=== PATIENT | female | born 1975 | race Caucasian/White ===

== ENCOUNTER 2025-02-16 10:49 | Outpatient (AMB) | payer BC, SELFPAY ==
--- NOTE | 2025-02-16 10:52 | A.OFFPC_ITS ---
Vital Signs 02/16/25 11:03 Height 5 ft 2 in Weight 137 lb 6 oz BMI 25.1 BP 124/70 Blood Pressure Location Lt brachial Position Sitting Respiration 16 Pulse 106 H Pulse Source Pulse Oximeter Temp 98.2 F Temp Source Oral Pulse Oximetry (%) 99 Oxygen Delivery Method Room Air Intake Visit Reasons: [facility] EST CARE Intake Note: patient here for new patient visit Sock Liner Required: No Is last menstrual period known: Yes Last menstrual period: 02/02/25 Post menopausal: No Patient : No Allergies Penicillins Allergy (Intermediate, Verified 02/16/25 11:52) Rash Medication List - Last Reconciled 02/16/25 by Rachel Fine CNP calcium carbonate (Calcium 600) 600 mg PO DAILY cholecalciferol (vitamin D3) 25 mcg PO DAILY bz-mbw-DH-B2-dc9-bln-epa-fish 80 mcg-12.5 mcg -23.5 mg (Centrum Multi Plus Denair-3) tabs PO DAILY spironolactone 50 mg PO DAILY Tobacco use date assessed: 02/16/25 Dental Screening Dental Screen Date: 02/16/25 Did you have a dental visit in the last 12 months?: Yes Did you have a dental problem in the last 6 months where you did not have access to dental care?: No Was dental information given to patient?: Patient has dentist HPI HPI Comments History of Present Illness Details 49-year-old female presents to [facility]. She admits to taking her medications as prescribed without adverse reactions. She is on spironolactone for acne. Prior PCP? - [facility] Last office visit/CPE/labs - About 15 months ago Acute issue(s) - None Past Medical History - Hyperlipidemia, hypermobility syndrome , acne Surgical History - Cholecystectomy, bilateral breast redu ction, section, arthroscopy of left shoulder, microdiskectomy Family History - Dad: Alcohol abuse, substance abuse Social History - Nonsmoker. Does not vape. Drinks 4-5 b eers or 2 glasses of wine occasionally/2-4 times monthly. Denies recreational drug use - Has been making healthy dietary choice s. Exercises routinely. Generally sleep well Health maintenance - Last eye exam was in 08/[address] Jessenia mao. Advise to rign a release for her PCP to obtain ophthalmology record - Last dental visit was 7 months ago - Last Tdap was in 10/2023 with former P CP. Record not currently available - She is up-to-date on the influenza vac cine this season - Last pap smear test was in 04/2024 with [facility] business office technician: Negative. Record not currently available - Last mammogram was in 09/2024 with [facility] business office technician: Normal. Record not currently available Specialists - [facility] business office technician - [facility] Medical History (Updated 02/16/25 @ 11:56 by Rachel Fine CNP) Acne Hypermobility syndrome High cholesterol Surgical History (Updated 02/16/25 @ 11:08 by HILDA Porter) History of microdiscectomy History of arthroscopy of left shoulder Hx laparoscopic cholecystectomy History of bilateral breast reduction surgery H/O: Family History (Updated 02/16/25 @ 11:02 by HILDA Porter) Father Alcohol abuse FH: mental illness Substance abuse Brother FH: mental illness Substance abuse Social History (Updated 02/16/25 @ 11:02 by HILDA Porter) Housing: House Patient Tobacco Use Status: Never used Tobacco e-Cigarette/Vaping Use: Never Used Second Hand Smoke Exposure: No service: No Current occupational status: employed 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 1. Little interest or pleasure in doing things: not at all 2. Feeling down, depressed, or hopeless: not at all 3. Trouble falling or staying asleep, or sleeping too much: not at all 4. Feeling tired or having little energy: not at all 5. Poor appetite or overeating: not at all 6. Feeling bad about yourself - or that you are a failure or have let yourself or your family down: not at all 7. Trouble concentrating on things, such as reading the newspaper or watching television: not at all 8. Moving or speaking so slowly that other people could have noticed. Or the opposite - being so fidgety or restless that you have been moving around a lot more than usual: not at all 9. Thoughts that you would be better off or of hurting yourself in some way: not at all Total score: 0 Depression Screening Interpretation: Negative Depression Screening Done: Yes 71172 - PHQ-9 Billing: Yes Source: Developed by Drs. Malik Zhu, Kristi Espinoza, Gabriel Alvarez and colleagues, with an educational lucrecia from [employer].. Thrive Questionnaire Date Thrive assessed: 02/16/25 I am a: Patient What is your living situation today?: I have a steady place to live Within the past 12 months, did the food you bought not last and you didn't have the money to get more?: Never true Within the past 12 months, did you worry whether your food would run out before you got money to buy more?: Never true Do you have trouble paying for medicines?: No Do you have trouble getting transportation to medical appointments?: No Do you have trouble paying your heating and electricity bill?: No Do you have trouble taking care of your child, family member or friend?: No Do you have trouble with day-to-day activities such as bathing, preparing meals, shopping, managing finances, etc.?: No Are you currently unemployed and looking for a job?: No Are you interested in more education?: No Please select the resources that you would like help with: None Currently or been in a relationship where the following occur: No concerns reported THRIVE Score: 0 AUDIT C Alcohol Use Questionnaire (AUDIT-C) 1. How often do you have a drink containing alcohol?: 2-4 times a month 2. How many drinks containing alcohol do you have on a typical day when you are drinking?: 3 or 4 3. How often do you have six or more drinks on one occasion?: Less than monthly Total Score: 4 Score Reviewed/Action Taken: Yes ZACK-7 AMB Questionnaire ZACK-7 Date ZACK - 7 assessed: 02/16/25 Feeling nervous, anxious, or on edge: 0 = Not at all Not being able to stop or control worryin = Not at all Worrying too much about different things: 0 = Not at all Trouble relaxin = Not at all Being so restless that it is hard to sit still: 0 = Not at all Becoming easily annoyed or irritable: 0 = Not at all Feeling afraid as if something awful might happen: 0 = Not at all Total ZACK-7 score (0-4 normal; 5-9 mild; 10-14 moderate; 15-21 severe): 0 Source: Developed by Drs. Malik Zhu, Kristi Espinoza, Gabriel Alvarez and colleagues, with an educational lucrecia from [employer].. ZACK-7 Assessment Billing ZACK-7 Assessment Tool: ZACK-7 Assessment 25774 Review of Systems Const Details: Denies chills, Denies fatigue, Denies fever(s), Denies headache(s) and Denies weakness HEENT Denies change in vision, Denies dizziness, Denies headache(s), Denies hearing loss, Denies nasal congestion, Denies sinus pain, Denies sinus pressure and Denies sore throat Card Denies chest pain, Denies lightheadedness, Denies dyspnea and Denies other (palpitations) Resp Denies cough, Denies dyspnea and Denies wheezing GI Denies abdominal pain, Denies melena, Denies hematochezia, Denies change in bowel habits, Denies dyspepsia and Denies nausea Denies hematuria and Denies dysuria Musc Denies abnormal gait, Denies myalgias, Denies arthralgias, Denies numbness and Denies tingling Skin/Breast Denies rash, Denies unusual bruising and Denies wounds Neuro Denies abnormal gait, Denies dizziness, Denies headache(s), Denies memory loss, Denies numbness, Denies Sensory deficit (Neuro), Denies tingling and Denies weakness Psych Denies anxiety, Denies depression and Denies memory loss Endo Denies cold intolerance, Denies fatigue, Denies heat intolerance, Denies polydipsia and Denies polyuria Anuel/Lymph Denies easy bleeding and Denies easy bruising Aller/Immun Denies wheezing Physical exam (Primary Care) Vital Signs: Last Vital Signs Temp 98.2 F 02/16/25 11:03 Pulse 106 H 02/16/25 11:03 Resp 16 02/16/25 11:03 BP 124/70 02/16/25 11:03 Pulse Ox 99 02/16/25 11:03 Oxygen Delivery Method Room Air 02/16/25 11:03 BMI result Body Mass Index 25.1 Tobacco/Smoking Status: Tobacco use Status Tobacco use date assessed 02/16/25 02/16/25 11:02 Patient Tobacco Use Status Never used Tobacco 02/16/25 11:02 e-Cigarette/Vaping Use Never Used 02/16/25 11:02 PHQ-9: PHQ-9 Score PHQ-9: Total score 0 02/16/25 11:11 Depression Screening Interpretation: Negative Thrive Assessment: Date of Thrive Assessment Date Thrive assessed 02/16/25 02/16/25 11:11 Currently or been in a relationship where the following occur: No concerns reported Const Other: General: no acute distress, well developed, alert and awake Nutritional Appearance: well nourished Orientation/consciousness: patient oriented x3 HENMT Head: Yes normocephalic and Yes atraumatic Ears: hearing grossly normal bilaterally and TM's normal bilaterally General nose exam: Normal external nose present and Normal nares present Mouth: Normal oral and palatal mucosa present and moist mucous membranes Teeth and gingiva: dentition normal Throat: Yes oropharynx normal Eyes Pupils: Equal, round and reactive pupils present and Pupil accommodation reflex normal EOM: EOMs intact bilaterally Neck Neck: Yes normal visual inspection, Yes no lymphadenopathy and Yes trachea midline Thyroid: Thyroid normal Carotids: no bruits Lymphatic: no lymphadenopathy noted Chest Chest palpation & inspection: normal inspection of the chest Resp Effort & Inspection: normal respiratory effort Auscultation: clear to auscultation bilaterally Cardio Rate: regular rate Rhythm: regular rhythm Heart sounds: S1 normal heart sound present, S2 normal heart sound present, no gallops, no murmurs and no rubs Bruits: no abdominal aortic bruits and no carotid bruits GI Palpation (GI): No Abdominal aortic bruit present, Soft to palpation, nontender, No hepatosplenomegaly present and No Rebound tenderness present Auscultation: normal bowel sounds General: Yes no CVA tenderness Back/Spine/Pelvis Back: no CVA tenderness Cervical Spine: cervical ROM normal and No Cervical spine tenderness Thoracic/Lumbar Spine: thoraco-lumbar ROM normal, No pain with thoraco-lumbar ROM, No thoracic spinal tenderness and No lumbar spinal tenderness Skin General: warm and dry. Normal skin color. Normal skin turgor Lesions: no lesions Rashes: no rashes Trauma: no lacerations or abrasions Wounds: no wounds Nails: normal Neuro General: patient oriented x3, gait normal and CN's II-XI intact bilaterally Cranial nerves: Yes Equal, round and reactive pupils present Cognition (Neuro): normal cognition Gait exam (Neuro): Normal gait present Motor exam (neuro): 5/5 motor strength present throughout Sensory Exam: No Sensory deficit (Neuro) Deep tendon reflexes (DTR's): Right patellar reflex intensity grade: 2+ and Left patellar reflex intensity grade: 2+ Extrem General: Yes normal to inspection, No edema and No calf tenderness Psych Appearance: grossly normal Affect: normal affect Attitude: cooperative Thought process: Normal thought process present Coding Level of Care Code New Pt Prev Care 40-64y(09532) Diagnoses Normal physical examination, routine Z00.00 Laboratory tests ordered as part of a complete physical exam (CPE) Z00.00 Additional Codes ZACK-7 Assessment Billing - ZACK-7 Assessment Tool: ZACK-7 Assessment 87325 ([id number]) PHQ-9 - 33742 - PHQ-9 Billing: Yes ([id number]) Assessment & Plan Assessment & Plan (1) Normal physical examination, routine: Code(s): Z00.00 - Encounter for general adult medical examination without abnormal findings Category: Medical Plan: No significant functional limitation noted. Continue current treatment regimen. Perform lab work and follow-up for a telehealth visit for labs review in 2-3 weeks. Return sooner with symptoms or concerns. Verbalized understanding and agreed with the plan. (2) Laboratory tests ordered as part of a complete physical exam (CPE): Code(s): Z00.00 - Encounter for general adult medical examination without abnormal findings Category: Medical Plan: Fasting labs ordered as part of a complete physical exam. Advised to fast for at least 10 hours before getting labs drawn. May drink water Verbalized understanding and agreed with treatment plan. Orders: Orders Complete Blood Count Auto Diff Today Z00.00 - Encounter for general adult medical examination without abnormal findings TSH reflex Free T4 Today Z00.00 - Encounter for general adult medical examination without abnormal findings Vitamin D 25-OH Total Today Z00.00 - Encounter for general adult medical examination without abnormal findings Comprehensive [place]. Panel Fast Today Z00.00 - Encounter for general adult medical examination without abnormal findings Lipid Panel Today Z00.00 - Encounter for general adult medical examination without abnormal findings Microalbumin, Random (w Creat) Today Z00.00 - Encounter for general adult medical examination without abnormal findings UA CC w/rflx Micro + Cult Today Z00.00 - Encounter for general adult medical examination without abnormal findings
[2025-02-16 11:03] VITALS: BP 124/70; PULSE 106; RESP 16; TEMP 36.8; O2SAT 99; BMI 25.1
--- OUTSIDE RECORDS SUMMARY | 2025-02-16 13:26 | XMS_ITS | Clinical Summary ---
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; COMMENT: L4-L5;discectomy OTHER SURGICAL HISTORY PROCEDURE: IMPLANT BREAST SILICONE/EQ; COMMENT: 2009 BREAST REDUCTION PROCEDURE: [place] BREAST REDUCTION; COMMENT: and augmentation 2009 SHOULDER SURGERY Left PROCEDURE: HISTORICAL SHOULDER SURGERY BREAST ENHANCEMENT SURGERY W IMPLANT Medical History Medical History Date Comments Circumscribed scleroderma DX:Cir cumscribed scleroderma History of COVID-19 DX:History o f COVID-19 Family History Medical History Relation Name Comments CABG Father Hyperlipidemia Father Hypertension Father Other cancer Maternal Grandmother No Known Problems Mother Breast cancer Neg Hx Colon cancer Neg Hx Ovarian cancer Neg Hx Uterine cancer Neg Hx Relation Name Status Comments Brother 1 Alive Brother 2 Brother 3 Alive Brother 4 Alive Brother 5 (Age 2009) Father Maternal Grandfather Maternal Grandmother Mother Alive Paternal Grandfather Paternal Grandmother Sister Alive Social History Tobacco Use Types Packs/Day Years Used Date Smoking Tobacco: Never Smokeless Tobacco: Never Alcohol Use Standard Drinks/Week Comments Yes 0 (1 standard drink = 0.6 oz pur e alcohol) Comments No Sex and Gender Information Value Date Recorded Sex Assigned at Not on file Legal Sex Female 4:14 AM EST Gender Identity Not on file Sexual Orientation Not on file Obstetrics History Para Term AB IAB SAB Ectopic Multiple Livin g Live Births 2 2 2 2 Date Outcome GA Total Labor Labor/2nd/3rd Weight Sex Type Anes PTL Annita A1 A5 Name Clin Term Term Last Filed Vital Signs Vital Sign Reading Time Taken Comments Blood Pressure 97/65 11/22/2023 9:50 AM EDT Pulse 87 11/22/2023 9:50 AM EDT Temperature - - Respiratory Rate - - Oxygen Saturation - - Inhaled Oxygen Concentration - - Weight 61.7 kg (136 lb) 11/22/2023 9:50 AM EDT Height 157.5 cm (5' 2 ) 11/22/2023 9:50 AM EDT Body Mass Index 24.87 11/22/2023 9:50 AM EDT Plan of Treatment Health Maintenance Due Date Last Done Comments Colorectal Cancer Screening: Colonoscopy 1975 Hepatitis B Vaccines (1 of 3 - 19+ 3-dose series) 12/30/1994 Cervical Cancer Screening: HPV 12/30/1996 Cholesterol Screening (Lipid Panel) 04/01/2022 HIV Screening 04/01/2022 Hepatitis C Screening 04/01/2022 Social Influencers of Health Screening 04/01/2022 Depression Screening 04/23/2024 Hypertension/CHF/CAD Annual BMP Blood Test 10/20/2024 COVID-19 Vaccine ( - 2024- season) 2024 02/14/2021, 06/16/2020, 05/17/2020 Influenza Vaccine (#1) 2024 , 02/06/2023, 02/06/2022, Additional history exists Breast Cancer Screening 10/20/2026 10/21/19, 10/11/2023, 09/29/2022, Additional history exists DTaP,Tdap,and Td Vaccines (2 - Td or Tdap) 11/12/2033 11/13/2023 RSV Immunization Adult Patients (1 - 1-dose 75+ series) 12/30/2050 HIB Vaccines Aged Out No longer eligi ble based on patient's age to complete this topic HPV Vaccines Aged Out No longer eligi ble based on patient's age to complete this topic Hepatitis A Vaccines Aged Out No long er eligible based on patient's age to complete this topic IPV Vaccines Aged Out No longer eligi ble based on patient's age to complete this topic MMR Vaccines Aged Out No longer eligi ble based on patient's age to complete this topic Meningococcal ACWY Vaccine Aged Out N o longer eligible based on patient's age to complete this topic Meningococcal B Vaccine Aged Out No l onger eligible based on patient's age to complete this topic Pneumococcal Vaccine: Pediatrics (0 to 5 Years) and At-Risk Patients (6 to 49 Years) Aged Out No longer eligible based on patient's age to complete this topic RSV Immunization Patients Under 20 months Aged Out No longer eligible based on patient's age to complete this topic Varicella Vaccines Aged Out No longer eligible based on patient's age to complete this topic Procedures Procedure Name Priority Date/Time Associated Diagnosis Comments MG MAMMO DIGITAL SCREENING W JERZY BILAT Routine 10/20/2024 8:21 AM EDT Encounter for screening mammogram for breast cancer from Last 3 Months or Most Recently Relevant to Health Maintenance Results * MG Mammo Digital Screening w Jerzy bilat (10/20/2024 8:21 AM EDT) Anatomical Region Laterality Modality Breast Bilateral Mammography 10/20/2024 8:38 AM EDT Impressions 10/20/2024 8:42 AM EDT No mammographic evidence for malignancy. BI-RADS CATEGORY: 1 - NEGATIVE RECOMMENDATION: Screening bilateral mammogram is recommended in 1 year. Mammo Location: [facility], [address] [place] [address], [id number], . -------- FINAL REPORT -------- Dictated By: Diana Horta Dictated Date: 10/20/2024 08:38 ET Assigned Physician: Diana Horta Reviewed and Electronically Signed By: Diana Hrota Signed Date: 10/20/2024 08:42 ET Workstation ID: [id number] Transcribed By: Self Edit Transcribed Date: 10/20/2024 08:38 ET Narrative 10/20/2024 8:42 AM EDT Bilateral screening mammogram. CLINICAL: 48 years old, Female, routine annual exam. COMPARISON: Prior studies, latest from 10/11/2023. TECHNIQUE: Bilateral MLO and CC views were obtained digitally without and with implants displacement with 2-D C views and 3-D mammogram (digital breast tomosynthesis). Computer-aided detection was utilized in evaluation of this exam (CAD). FINDINGS: There is no evidence of suspicious mass or architectural distortion. No worrisome calcifications are evident. There has been no significant change from prior exam(s). BREAST DENSITY: C - The breasts are heterogeneously dense which may obscure small masses. Procedure Note Diana Horta MD - 10/20/2024 Bilateral screening mammogram. CLINICAL: 48 years old, Female, routine annual exam. COMPARISON: Prior studies, latest from 10/11/2023. TECHNIQUE: Bilateral MLO and CC views were obtained digitally without andwith implants displacement with 2-D C views and 3-D mammogram (digitalbreast tomosynthesis). Computer-aided detection was utilized in evaluationof this exam (CAD). FINDINGS: There is no evidence of suspicious mass or architectural distortion. Noworrisome calcifications are evident. There has been no significantchange from prior exam(s). BREAST DENSITY: C - The breasts are heterogeneously dense which mayobscure small masses. IMPRESSION: No mammographic evidence for malignancy. BI-RADS CATEGORY: 1 - NEGATIVE RECOMMENDATION: Screening bilateral mammogram is recommended in 1 year. Mammo Location: [facility], [address] [place] [address], [id number], . -------- FINAL REPORT -------- Dictated By: Diana Horta Dictated Date: 10/20/2024 08:38 ET Assigned Physician: Diana Horta Reviewed and Electronically Signed By: Diana Horta Signed Date: 10/20/2024 08:42 ET Workstation ID: [id number] Transcribed By: Self Edit Transcribed Date: 10/20/2024 08:38 ET Cami Espinal CNM IMG BI PROCEDURES Final Resul t from Last 3 Months or Most Recently Relevant to Health Maintenance Insurance [facility] Care Teams Optical Instrument Assembler Relationship Specialty Start Date End Date Ronnie Boswell MD [address] [place] [address] PCP - General 04/11/06
== END 2025-02-16 12:13 | disposition home or self-care (01) ==
LOC: HO.HMCFM 10:49
PROVIDERS: PCP Nurse Practitioner Family; Visit Provider Nurse Practitioner Family
DX: Z00.00 Encounter for general adult medical examination without abnormal findings (principal)

== ENCOUNTER → 2025-02-16 10:49 | Outpatient (BNVA) | payer BC, SELFPAY | PROVIDERS: PCP Nurse Practitioner Family; Visit Provider Nurse Practitioner Family | DX: Z00.00 Encounter for general adult medical examination without abnormal findings (principal) | CPT/HCPCS: 96127 ==

== ENCOUNTER 2025-02-24 07:32 | Outpatient (REF) | payer BC, SELFPAY ==
--- OUTSIDE RECORDS SUMMARY | 2025-02-24 07:35 | XMS_ITS | Clinical Summary ---
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 Mammo Location: [facility], [address] [place] [address], [id number], . -------- FINAL REPORT -------- Dictated By: Diana Horta Dictated Date: 10/20/2024 08:38 ET Assigned Physician: Diana Horta Reviewed and Electronically Signed By: Diana Horta Signed Date: 10/20/2024 08:42 ET Workstation ID: [id number] Transcribed By: Self Edit Transcribed Date: 10/20/2024 [...] is recommended in 1 year. Mammo Location: [facility], [address] [place] [address], [id number], . -------- FINAL REPORT -------- Dictated By: Diana Horta Dictated Date: 10/20/2024 08:38 ET Assigned Physician: Diana Horta Reviewed and Electronically Signed By: Diana Horta Signed Date: 10/20/2024 08:42 ET Workstation ID: [id number] Transcribed By: Self Edit Transcribed Date: 10/20/2024 08:38 ET Cami Espinal CNM IMG BI PROCEDURES Final Resul t from Last 3 Months or Most Recently Relevant to Health Maintenance Insurance [facility] Care Teams Lyft Driver Relationship Specialty Start Date End Date Ronnie Boswell MD [address] [place] [address] PCP - General 04/11/06
--- OUTSIDE RECORDS SUMMARY | 2025-02-24 07:35 | XMS_ITS | Clinical Summary ---
Author Organization [facility] Address [address] [id number] Phone Care Team Providers Care Bullet Assembly Press Setter Operator Name Role Phone Unknown, Unknown Primary Care Provider Kole shelby Immunizations Immunization Administration Dates Next Due COVID-19 (Pre-02/12) Moderna Vaccine, mRNA, PF 02/14/2021,06/16/2020,05/17/2020 INFLUENZA, SPLIT VIRUS, TRIVALENT PF 01/14/2024 Influenza Quadrivalent Preservative Free IM 01/21 Influenza Quadrivalent w/ Preservative IM 2020 Influenza, Unspecified Formulation 02/06/2023 Social History Tobacco Use Types Packs/Day Years Used Date Smoking Tobacco: Never Assessed Education Answer Date Recorded Are you interested in more education? Not on brianna e 08/18/2022 Are you concerned about learning? Not on file 08/18/2022 No 08/18/2022 No 08/18/2022 Digital Access Answer Date Recorded No 09/18/2022 No 09/18/2022 No 09/18/2022 Reliable internet access at home? Not on file 09/18/2022 Device with a working camera? Not on file Comments Unknown Sex and Gender Information Value Date Recorded Sex Assigned at Not on file Legal Sex Female 10:13 AM EDT Gender Identity Not on file Sexual Orientation Not on file Plan of Treatment Health Maintenance Due Date Last Done Comments Adult Td,Tdap Booster 1975 LIPID PANEL 1975 DEPRESSION SCREENING 1987 SMOKING Hx and SMOKELESS TOBACCO SCREENING 12/30/1988 HEPATITIS C SCREENING 12/30/1993 HIV ONE-TIME SCREENING (18-65 YEARS) 12/30/1993 PAP SMEAR 12/30/1996 MAMMOGRAM 2015 COLOGUARD 12/30/2020 COLONOSCOPY 12/30/2020 COLORECTAL CANCER SCREENING 12/30/2020 FIT TEST 12/30/2020 FOBT 12/30/2020 SIGMOIDOSCOPY 12/30/2020 VIRTUAL COLONOSCOPY 12/30/2020 INFLUENZA VACCINE (#1) 2024 , 02/06/2023, 02/06/2022, Additional history exists COVID-19 VACCINE ( season) 2024 02/14/2021, 06/16/2020, 05/17/2020 HEPATITIS A VACCINES Aged Out No long er eligible based on patient's age to complete this topic HIB VACCINES Aged Out No longer eligi ble based on patient's age to complete this topic MENINGOCOCCAL VACCINES (ACWY) Aged Out No longer eligible based on patient's age to complete this topic MENINGOCOCCAL VACCINES (B) Aged Out N o longer eligible based on patient's age to complete this topic PNEUMOCOCCAL VACCINES (0-49 years) Aged Out No longer eligible based on patient's age to complete this topic Medical Devices Not on file Insurance [address] [place], [place] [address] [place], [place] [id number] [facility] HMO Care Teams Bullet Assembly Press Setter Operator Relationship Specialty Start Date End Date Unknown, Unknown, PCP - General 04/07/20 Additional Source Comments The information contained in this document represents components of the legal health record. It is not the complete legal health record.[facility]
[2025-02-24 12:01] LABS: Appearance Urine Clear; Glucose Urine UA Negative (Negative); PH 7.0 (5.0-9.0); Specific Gravity - Urine 1.020 (1.005-1.025)
[2025-02-24 12:28] LABS: MANUAL DIFF FLAG NO
[2025-02-24 12:34] LABS: Hematocrit 38.6 % (37.0-47.0); Hemoglobin 12.9 g/dl (12.0-16.0); Imm Gran Abs Auto 0.01 X10*3/uL (0.00-0.03); Imm Gran Pct Auto 0.2 % (0.0-0.4); Lymphocytes Absolute Auto 1.7 X10*3/uL (1.2-4.9); Mean Corpuscular HGB Conc 33.4 g/dl (31.0-35.0); Mean Corpuscular Hemoglobin 31.4 pg (27.0-33.0); Mean Corpuscular Volume 93.9 fL (80.0-98.0); NRBC Abs Auto 0.000 X10*3/uL (0.0-0.012); NRBC Pct Auto 0.0 /100WBC (0.0-0.2); Platelet Count 309 X10*3/uL (160-400); Red Blood Count 4.11 X10*6/uL (4.20-5.50); White Blood Count 4.6 X10*3/uL (4.8-10.8)
[2025-02-24 12:40] LABS: Microalbum/Creatinine Ratio Ur 4.1 ug/mg cr (<30)
[2025-02-24 13:22] LABS: Alanine Aminotransferase 16 U/L (0-31); Albumin Level 4.2 g/dL (3.5-5.0); Alkaline Phosphatase 44 U/L (39-117); Anion Gap 9 (12-20); Aspartate Amino Transferase 25 U/L (5-31); Blood Urea Nitrogen 15 mg/dL (9-16); Calcium 8.9 mg/dL (8.4-10.2); Carbon Dioxide 25 mmol/L (22-29); Chloride 109 mmol/L (96-108); Cholesterol 189 mg/dL (<200); Estimated Glomerular Filt Rate > 60; HDL Cholesterol 69 mg/dL (>40); Potassium 4.2 mmol/L (3.3-5.1); Sodium 139 mmol/L (135-145); Total Protein 6.7 g/dL (6.5-8.0); Triglycerides 77 mg/dL (<150)
== END 2025-02-24 07:33 | disposition home or self-care (01) ==
LOC: HO.WFDLDS 07:32
PROVIDERS: Visit Provider Nurse Practitioner Family
DX: Z00.00 Encounter for general adult medical examination without abnormal findings (principal); Z13.0 Encounter for screening for diseases of the blood and blood-forming organs and certain disorders involving the immune mechanism; Z13.29 Encounter for screening for other suspected endocrine disorder; Z13.1 Encounter for screening for diabetes mellitus; Z13.6 Encounter for screening for cardiovascular disorders
CPT/HCPCS: 36415; 80053; 80061; 81003; 82043; 82306; 82570; 84443; 85025

== ENCOUNTER 2025-03-09 13:40 | Outpatient (AMB) | payer BC, SELFPAY ==
--- NOTE | 2025-03-09 13:26 | MHC.PC.OV ---
Intake Visit Reasons: Tele 2-3 wks labs review Intake Note: patient here for 2-4 wks Telehealth follow up for labs review Circulation Worker Required: No Is last menstrual period known: Yes Last menstrual period: 03/01/25 Post menopausal: No Patient : No Allergies Penicillins Allergy (Intermediate, Verified 03/09/25 13:27) Rash Tobacco use date assessed: 03/09/25 Dental Screening Dental Screen Date: 03/09/25 Did you have a dental visit in the last 12 months?: Yes Did you have a dental problem in the last 6 months where you did not have access to dental care?: No Was dental information given to patient?: Patient has dentist HPI HPI Comments History of Present Illness Details 49-year-old female presents for a telehealth visit for review of recent lab results. No acute symptoms at this time. [facility] Medical History (Updated 03/09/25 @ 13:57 by Rachel Fine CNP) Acne Hypermobility syndrome High cholesterol Surgical History (Updated 02/16/25 @ 11:08 by HILDA Porter) History of microdiscectomy History of arthroscopy of left shoulder Hx laparoscopic cholecystectomy History of bilateral breast reduction surgery H/O: Family History (Updated 02/16/25 @ 11:02 by HILDA Porter) Father Alcohol abuse FH: mental illness Substance abuse Brother FH: mental illness Substance abuse Social History (Updated 02/16/25 @ 11:02 by HILDA Porter) Housing: House Patient Tobacco Use Status: Never used Tobacco e-Cigarette/Vaping Use: Never Used Second Hand Smoke Exposure: No Patient : No service: No Current occupational status: employed 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 Current occupational exposures/hazards: No Cognitive needs: No Hearing needs: No Vision needs: No Female Reproductive History Menstrual Date of last menstrual period: 03/01/25 Questionnaire Thrive Questionnaire Date Thrive assessed: 02/09/25 I am a: Patient What is your living situation today?: I have a steady place to live Within the past 12 months, did the food you bought not last and you didn't have the money to get more?: Never true Within the past 12 months, did you worry whether your food would run out before you got money to buy more?: Never true Do you have trouble paying for medicines?: No Do you have trouble getting transportation to medical appointments?: No Do you have trouble paying your heating and electricity bill?: No Do you have trouble taking care of your child, family member or friend?: No Do you have trouble with day-to-day activities such as bathing, preparing meals, shopping, managing finances, etc.?: No Are you currently unemployed and looking for a job?: No Are you interested in more education?: No THRIVE Score: 0 ZACK-7 AMB Questionnaire ZACK-7 Date ZACK - 7 assessed: 02/16/25 Source: Developed by Drs. Malik Zhu, Kristi Espinoza, Gabriel Alvarez and colleagues, with an educational lucrecia from [employer]. Review of Systems Const Details: Denies chills, Denies fatigue, Denies fever(s), Denies headache(s) and Denies weakness Cardiac Denies chest pain, Denies claudication, Denies leg edema, Denies lightheadedness, Denies palpitations, Denies dyspnea, Denies dyspnea on exertion, Denies orthopnea and Denies other (Loss of consciousness) Resp Denies cough, Denies excessive phlegm production, Denies dyspnea, Denies dyspnea on exertion, Denies snoring and Denies wheezing Physical exam (Primary Care) Tobacco/Smoking Status: Tobacco use Status Tobacco use date assessed 03/09/25 03/09/25 13:28 Patient Tobacco Use Status Never used Tobacco 03/09/25 13:28 e-Cigarette/Vaping Use Never Used 03/09/25 13:28 Thrive Assessment: Date of Thrive Assessment Date Thrive assessed 02/09/25 03/09/25 13:28 Const Other: Patient is alert oriented x4 Telehealth Telehealth Telehealth Platform: Telephone Location of provider rendering services: practice address Location of patient: address on file Patient Identification confirmed using: Name, : Yes Telehealth method: voice only Patient verbally consented to treatment: Yes Patient verbally consented to billing insurance company: Yes Patient informed of any privacy concerns related to visit: Yes Coding Level of Care Code Tele Est Pt Level 3 (61985) Diagnoses Elevated LDL cholesterol level E78.00 Time Spent (min) 10 Assessment & Plan Assessment & Plan (1) Elevated LDL cholesterol level: Code(s): E78.00 - Pure hypercholesterolemia, unspecified Category: Medical Plan: Recent lab results reviewed with the patient. LDL is slightly elevated, 105. Triglycerides, total cholesterol and HDL levels are normal. Advised to limit foods high in saturated fat and avoid foods high in trans fat. Routine exercise encouraged. Will monitor lipid panel level and will yellow if clinically indicated. Follow-up for transfer of care with a new provider within the practice. Verbalized understanding and agreed with the plan. WBC and RBC slightly elevated.
== END 2025-03-09 14:22 | disposition home or self-care (01) ==
LOC: HO.HMCFM 13:40
PROVIDERS: PCP Nurse Practitioner Family; Visit Provider Nurse Practitioner Family
DX: E78.00 Pure hypercholesterolemia, unspecified (principal)

== ENCOUNTER 2025-04-06 15:09 | Outpatient (AMB) | payer BC, SELFPAY ==
--- NOTE | 2025-04-06 15:12 | A.OFFPC_ITS ---
Vital Signs 04/06/25 15:16 Height 5 ft 2 in Weight 137 lb BMI 25.1 BP 120/60 Blood Pressure Location Lt brachial Position Sitting Respiration 16 Pulse 94 Pulse Source Pulse Oximeter Temp 97.6 F Temp Source Temporal Artery Scan Pulse Oximetry (%) 94 Oxygen Delivery Method Room Air Intake Visit Reasons: amina john Intake Note: Rashida presents in the office today to establish care with a new provider. Judicial Law Clerk Required: No Is last menstrual period known: Yes Last menstrual period: 03/23/25 Post menopausal: No Patient : No Allergies Penicillins Allergy (Intermediate, Verified 04/06/25 15:15) Rash Tobacco use date assessed: 04/06/25 Dental Screening Dental Screen Date: 04/06/25 Did you have a dental visit in the last 12 months?: Yes Did you have a dental problem in the last 6 months where you did not have access to dental care?: No Was dental information given to patient?: Patient has dentist HPI HPI Comments History of Present Illness Details This is a 49-year-old female with a past medical history of elevated LDL cholesterol and hypermobility presenting for an appointment to establish care. She transferred from my colleague who was leaving the office. 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 She has 2 adult children. Her last physical exam was 02/16/2025. She has annual skin exams at [facility]. She is on spironolactone for acne. We reviewed her labs which showed LDL cholesterol is 104 with a target of less than 100. She does have a family history of cardiovascular disease. She is a nonsmoker. She exercises. Denies chest pain or shortness of breath. Continuous Mining Machine Lode Miner is Johnathon Espinal. Mammogram is up-to-date. Colonoscopy scheduled at [facility] June 2025. Patient says she was being evaluated by her last PCP, Dr. Boswell, for hypermobilit and easy bruising. Recommended rheumatology consult for possible aaron danlos, but he retired from the practice. She was seen by Hematology in the past for elevated PTT. No known family history of aneurysms or connective tissue disorder. ROS: Constitutional: No unexplained weight loss, fever, chills or night sweats Respiratory: No shortness of breath, cough or sputum production. Cardiovascular: No chest pain, chest pressure or chest discomfort. No palpitations or pedal edema. Gastrointestinal: No anorexia, nausea, vomiting or diarrhea. No abdominal pain or blood in stool. Neurologic: No headache, dizziness, syncope Hematologic/Lymphatics: See HPI Physical exam: Constitutional: Alert, in no distress. Ear, Nose and Throat: Canals clear. TMs normal. Normal nasal mucosa. No nasal discharge. No oral lesions. Neck: Supple, Full range of motion. No lymphadenopathy. Respiratory: Clear to auscultation. Cardiovascular: S1 S2 regular. No murmurs. Gastrointestinal: Abdomen soft, non-tender, non-distended. Normal bowel sounds. No palpable masses.. Neurologic: No focal neurological deficits Extremities: Warm and well perfused. No clubbing, cyanosis or edema. Psychiatric: Normal mood and affect [facility] Medical History (Updated 04/06/25 @ 15:54 by MAYNOR Weller) Acne Hypermobility syndrome High cholesterol Surgical History (Updated 02/16/25 @ 11:08 by HILDA Porter) History of microdiscectomy History of arthroscopy of left shoulder Hx laparoscopic cholecystectomy History of bilateral breast reduction surgery H/O: Family History Father Alcohol abuse FH: mental illness Substance abuse Brother FH: mental illness Substance abuse Social History (Updated 04/06/25 @ 15:16 by Lore Klein CMA) Housing: House Alcohol intake: current Patient Tobacco Use Status: Never used Tobacco e-Cigarette/Vaping Use: Never Used Second Hand Smoke Exposure: No service: No Current occupational status: employed 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 1. Little interest or pleasure in doing things: not at all 2. Feeling down, depressed, or hopeless: not at all 3. Trouble falling or staying asleep, or sleeping too much: not at all 4. Feeling tired or having little energy: not at all 5. Poor appetite or overeating: not at all 6. Feeling bad about yourself - or that you are a failure or have let yourself or your family down: not at all 7. Trouble concentrating on things, such as reading the newspaper or watching television: not at all 8. Moving or speaking so slowly that other people could have noticed. Or the opposite - being so fidgety or restless that you have been moving around a lot more than usual: not at all 9. Thoughts that you would be better off or of hurting yourself in some way: not at all Total score: 0 Source: Developed by Drs. Malik Zhu, Gabriel Delgadillo and colleagues, with an educational lucrecia from [employer]. Thrive Questionnaire Date Thrive assessed: 02/09/25 I am a: Patient What is your living situation today?: I have a steady place to live Within the past 12 months, did the food you bought not last and you didn't have the money to get more?: Never true Within the past 12 months, did you worry whether your food would run out before you got money to buy more?: Never true Do you have trouble paying for medicines?: No Do you have trouble getting transportation to medical appointments?: No Do you have trouble paying your heating and electricity bill?: No Do you have trouble taking care of your child, family member or friend?: No Do you have trouble with day-to-day activities such as bathing, preparing meals, shopping, managing finances, etc.?: No Are you currently unemployed and looking for a job?: No Are you interested in more education?: No Please select the resources that you would like help with: None Currently or been in a relationship where the following occur: No concerns reported THRIVE Score: 0 ZACK-7 AMB Questionnaire ZACK-7 Date ZACK - 7 assessed: 02/16/25 Source: Developed by Drs. Malik Zhu, Kristi Espinoza, Gabriel Alvarez and colleagues, with an educational lucrecia from [employer]. Physical exam (Primary Care) Vital Signs: Last Vital Signs Temp 97.6 F 04/06/25 15:16 Pulse 94 04/06/25 15:16 Resp 16 04/06/25 15:16 BP 120/60 04/06/25 15:16 Pulse Ox 94 04/06/25 15:16 Oxygen Delivery Method Room Air 04/06/25 15:16 BMI result Body Mass Index 25.1 Tobacco/Smoking Status: Tobacco use Status Tobacco use date assessed 04/06/25 04/06/25 15:20 Patient Tobacco Use Status Never used Tobacco 04/06/25 15:16 e-Cigarette/Vaping Use Never Used 04/06/25 15:16 PHQ-9: PHQ-9 Score PHQ-9: Total score 0 04/06/25 15:14 Thrive Assessment: Date of Thrive Assessment Date Thrive assessed 02/09/25 04/06/25 15:14 Currently or been in a relationship where the following occur: No concerns reported Coding Level of Care Code Est Pt Level 4 (26034) Add On Problem Visit Only Diagnoses Hypermobility syndrome M35.7 Elevated LDL cholesterol level E78.00 Assessment & Plan Assessment & Plan (1) Hypermobility syndrome: Code(s): M35.7 - Hypermobility syndrome Category: Medical (2) Elevated LDL cholesterol level: Code(s): E78.00 - Pure hypercholesterolemia, unspecified Category: Medical Plan In summary this is a 49-year-old female who presented to [facility] care. She was undergoing evaluation for hypermobility and easy bruising with her prior PCP at [facility]. Placed referral to Rheumatology. Recommended Mediterranean diet, cardiovascular exercise at least 5 days per week, avoidance of smoking and excessive alcohol use. Schedule physical exam in January 2026. Return sooner as needed. Orders: Referrals Rheumatology Referral E78.00 - Pure hypercholesterolemia, unspecified, M35.7 - Hypermobility syndrome
[2025-04-06 15:16] VITALS: BP 120/60; PULSE 94; RESP 16; TEMP 36.4; O2SAT 94; BMI 25.1
--- OUTSIDE RECORDS SUMMARY | 2025-04-06 21:44 | XMS_ITS | Clinical Summary ---
Author Organization [address] Address [address] [place] [phone] Phone Care Team Providers Care Car Body Designer Name Role Phone Ronnie Boswell MD Primary Care Provider Surgical History Surgery Date Site/Laterality Comments SECTION 12/2006 PROCEDURE: HISTORICAL OTHER SURGICAL HISTORY 08/2009 PROCEDURE: ID DCMPRN PX PERQ NUCLEUS PULPOSUS 1/[employer] CONSULTANT LVL LUMBAR; COMMENT: L4-L5;discectomy OTHER SURGICAL HISTORY PROCEDURE: IMPLANT BREAST SILICONE/EQ; COMMENT: 2009 BREAST REDUCTION PROCEDURE: ID BREAST REDUCTION; COMMENT: and augmentation 2009 SHOULDER [...] is recommended in 1 year. Mammo Location: [facility], [address] [place] [address], [id number], . -------- FINAL REPORT -------- Dictated By: [place] Horta Dictated Date: 10/20/2024 08:38 ET Assigned Physician: [place] Horta Reviewed and Electronically Signed By: [place] Horta Signed Date: 10/20/2024 08:42 ET Workstation ID: [id number] Transcribed By: Self Edit Transcribed Date: 10/20/2024 [...] is recommended in 1 year. Mammo Location: [facility], [address] [place] [address], [id number], . -------- FINAL REPORT -------- Dictated By: [place] Horta Dictated Date: 10/20/2024 08:38 ET Assigned Physician: [place] Horta Reviewed and Electronically Signed By: [place] Horta Signed Date: 10/20/2024 08:42 ET Workstation ID: [id number] Transcribed By: Self Edit Transcribed Date: 10/20/2024 08:38 ET Cami Espinal CNM IMG BI PROCEDURES Final Resul t from Last 3 Months or Most Recently Relevant to Health Maintenance Insurance [facility] Care Teams Car Body Designer Relationship Specialty Start Date End Date Ronnie Boswell MD [address] [place] [address] PCP - General 04/11/06
--- OUTSIDE RECORDS SUMMARY | 2025-04-06 21:44 | XMS_ITS | Clinical Summary ---
Author Organization [facility] Address [address] [place] [address] Phone Care Team Providers Care Solar Technician Name Role Phone Unknown, Unknown Primary Care [...] Devices Not on file Insurance [address] [place], [place] [id number] [place], [place] [id number] [facility] HMO Care Teams Solar Technician Relationship Specialty Start Date End Date Unknown, Unknown, PCP - General 04/07/20 Additional Source Comments The information contained in this document represents components of the legal health record. It is not the complete legal health record.[facility]
== END 2025-04-06 15:52 | disposition home or self-care (01) ==
LOC: HO.HMCFM 15:10
PROVIDERS: PCP Physician Assistant Medical; Visit Provider Physician Assistant Medical
DX: M35.7 Hypermobility syndrome (principal); E78.00 Pure hypercholesterolemia, unspecified